=== PATIENT | female | born 2000 | race Two or more races ===

== ENCOUNTER 2025-06-11 01:57 | Day surgery (SDC) | payer OTHER ==
[2025-06-11] MEDS ORDERED: hydrALAZINE 20 MG/ML VIAL SLOW IVP PRN (02:14)
[2025-06-11 02:31] VITALS: BMI 32.8
[2025-06-11 02:47] LABS: Fetal Membranes Rupture No Membranes Rupture (No Rupture)
== END 2025-06-11 04:47 | disposition home or self-care (01) ==
LOC: CSHLD/OP 01:57
PROVIDERS: ATTEND Obstetrics & Gynecology
DX: O47.1 False labor at or after 37 completed weeks of gestation (principal); Z03.71 Encounter for suspected problem with amniotic cavity and membrane ruled out; Z3A.40 40 weeks gestation of pregnancy; Z79.899 Other long term (current) drug therapy
CPT/HCPCS: 84112; 99284